=== PATIENT | female | born 1995 | race Caucasian/White ===

== ENCOUNTER → 2018-06-19 16:28 | Outpatient (CLI) | payer OTHER, SELFPAY ==
--- NOTE | 2018-06-19 16:37 | RAD_ITS ---
STUDY: X-RAY CHEST REASON FOR EXAM: Female, 22 years old. Shortness of breath and cough TECHNIQUE: Frontal and lateral views of the chest. COMPARISON: None. FINDINGS: The lungs are clear and expanded. There is no demonstrated pleural abnormality. Normal size heart. Normal mediastinum and tommy. Normal visualized pulmonary arteries. Normal visualized aortic arch and descending thoracic aorta. Normal visualized thoracic spine. Normal visualized ribs, clavicles, and shoulders. There is no demonstrated abnormality of the visualized soft tissue structures of the upper abdomen. RAD/Chest PA and Lateral IMPRESSION: Normal x-ray examination of the chest. Electronically Signed: Praveen Roque MD at 17:46 EDT , Service support ,
== END ==
PROVIDERS: Referring Provider Physician Assistant; Visit Provider Physician Assistant
DX: R06.02 Shortness of breath (principal); R05 Cough
CPT/HCPCS: 71046

== ENCOUNTER 2018-07-16 23:18 | Emergency (ER) | payer OTHER, SELFPAY ==
[2018-07-16 23:19] VITALS: BP 112/71; PULSE 88; RESP 18; TEMP 36.7; O2SAT 97; BMI 30.4
[2018-07-16 23:50] LABS: Bacteria 0 SEEN /hpf (None Seen); Mucous, Urine 0 SEEN /hpf (<or=2+); Red Blood Cells-Urine 0 SEEN /hpf (0-5); Squamous Epithelial Cells - UA 0 SEEN /hpf (5-10); White Blood Cells 0 SEEN /hpf (0-5)
[2018-07-16 23:52] LABS: Color, Urine Straw (Yellow); Glucose, Dipstick Normal (Normal); Ketone-Dipstick Negative (Negative); Leukocyte Esterase-Dipstick Negative /ul (Negative); Nitrite-Dipstick Negative (Negative); Occult Blood-Urine Negative /ul (Negative); Protein-Dipstick Negative (Negative); Specific Gravity, Urine 1.005 (1.002-1.030); Urine Bilirubin Dipstick Negative (Negative); Urine Clarity Clear (Clear); Urine Urobilinogen Normal (Normal)
[2018-07-17] MEDS: Acetaminophen 500 MG Tablet 1000 MG PO (00:07)
[2018-07-17 00:22] LABS: Internal QC Validated? YES +Cl - CLEAR BKGD; Pregnancy, Urine Negative Negative
--- NOTE | 2018-07-17 00:32 | ED.DCSUM_ITS ---
- ER Visit Summary Date of Service: 07/17/18 Chief Complaint: Abdominal pain History of Present Illness: The patient is a [address] Yang. She reports that she has left lower abdominal pain began 6 days ago. Is a continuous dull, pressure. Is 10 to 10 hours and 7-10 currently. Is worsened by movement or walking. Is relieved by remaining still. She denies any associated nausea, vomiting, diarrhea, melena, or hematochezia. Her last bowel was today. She is had no dysuria or frequency. She reports that her last menstrual. Was 4 weeks ago and that she was spotting 2 days ago. No vaginal discharge. Physical Examination: Vitals: Stable. Afebrile. General: Well-nourished and well-developed. Head: Normocephalic atraumatic. Neck: Supple, no lymphadenopathy. No JVD. Nontender. Cardiovascular: Regular rate and rhythm. No murmurs. Respiratory: No respiratory distress. Clear to auscultation bilaterally. Abdominal: Soft, mild tenderness to palpation left lower quadrant, nondistended, normal bowel sounds. No guarding, rebound, or peritoneal signs. Back: Nontender. Extremities: Nontender, no edema. Skin: Normal color, no rash. Neurologic: Alert and oriented ?3. Cranial nerves II through XII are intact. Normal strength and sensation. Psych: Normal affect. Test Results: test is negative. UA is normal. Emergency Department Course and Treatment: Patient was treated with Tylenol. Sh e is resting comfortably. Treatment Plan: Patient will be discharged instructions use Tylenol and/or ibuprofen for pain. Follow-up her primary care physician in 3 to 5 days if not improving. Return to the emergency department for any worsening symptoms. Disposition: To home in improved and stable condition. Impression: 1. Abdominal pain, uncertain cause. This note was generated with [employer] software. It may contain incorrect words, spelling, and punctuation that were not noted in review of the chart prior to signing ED Disposition - Plan for ED Patient: Disposition: Home or Assisted Living Instructions: ED Abdominal Pain Unkn Cause Referrals: Cynthia Yang MD [Primary Care Provider] - 1-2 Days if not improving
[2018-07-17 00:45] VITALS: BP 104/72; PULSE 65; O2SAT 97
== END 2018-07-17 00:48 | disposition home or self-care (01) ==
LOC: ED 07-17 00:04
PROVIDERS: Emergency Provider Emergency Medicine
DX: R10.32 Left lower quadrant pain (principal)
CPT/HCPCS: 81001; 81025; 99283

== ENCOUNTER 2018-08-16 06:07 | Day surgery (SDC) | payer OTHER, SELFPAY ==
[2018-08-02 14:08] VITALS: BMI 30.4
--- NOTE | 2018-08-08 11:10 | HP_ITS ---
ADDENDUM by Phi Alva MD on 08/08/18 at 1112 Addendum entered and electronically signed by Phi Alva MD 08/08/18 11:12: Patient has also had a 3-week history of left lower quadrant abdominal pain and bloating as well as noticing some recent rectal bleeding. She was diagnosed with IBS in the past but not sure if she has had active colitis. She has been told that she had numerous polyps in her colon but in review of the pathology report this was not the case. Intake Chief Complaint: 2-month history of shortness of breath Allergies fluoxetine Allergy (Verified 08/02/18 14:04) Swelling Medications lithium aspartate 5 mg capsule 10 mg PO BID cap 06/19/18 [History Confirmed 07/17/18] ascorbic acid (vitamin C) 250 mg tablet 250 mg PO DAILY 08/02/18 [History Confirmed 08/02/18] cholecalciferol (vitamin D3) 5,000 unit capsule 5,000 unit PO DAILY 08/02/18 [History Confirmed 08/02/18] Assessment & Plan Problems 1. Diarrhea, unspecified type R19.7 2. Epigastric abdominal pain R10.13 Plan - Phi Alva MD I have discussed the above with the patient. I have offered the patient colonoscopy as well as an EGD for evaluation. I have explained the risks/benefits of the procedure and described the procedure. I have discussed the risks with the patient, including but not limited to: infection, bleeding, perforation of the GI tract requiring emergency surgery, inability to complete the procedure, injury to any internal organs, complications of anesthesia, etc. - the patient understands and agrees to proceed. I have answered all the patient's questions to the patient's satisfaction and the patient has no further questions. The patient has been given instructions for the colon cleansing preparation. She will need to have random colon biopsies performed as well as small bowel biopsy. 08/08/18 1113 <Electronically signed by Phi guaman MD> Date _ Phi Alva MD cc: Cynthia Yang MD ~* Signed Intake Vital Signs 08/02/18 Body Mass Index (BMI) 30.4 08/02/18 Height 5 ft 4 in 08/02/18 Weight: 173 lb 08/02/18 Body Mass Index (BMI) 29.7 08/02/18 Blood Pressure 117/71 08/02/18 Blood Pressure Location Rt brachial 08/02/18 Blood Pressure Position Sitting 08/02/18 Respiratory Rate 18 08/02/18 Pulse Rate 68 08/02/18 Pulse Source Monitor 08/02/18 Temperature 97.8 F 08/02/18 Temperature Source Oral 08/02/18 Pulse Ox 100 08/02/18 Oxygen Delivery Method room air Intake Visit Reasons: Rectal Bleeding US [facility] 07/28 Chief Complaint: 2-month history of shortness of breath [employer] Required: No Is patient in pain?: No Allergies fluoxetine Allergy (Verified 08/02/18 14:04) Swelling Medications lithium aspartate 5 mg capsule 10 mg PO BID cap 06/19/18 [History Confirmed 07/17/18] ascorbic acid (vitamin C) 250 mg tablet 250 mg PO DAILY 08/02/18 [History Confirmed 08/02/18] cholecalciferol (vitamin D3) 5,000 unit capsule 5,000 unit PO DAILY 08/02/18 [History Confirmed 08/02/18] [facility] Medical History Abdominal pain (Acute) Anxiety (Acute) Depression (Acute) Fibrocystic breast disease (Acute) Radon exposure (Acute) Shortness of breath (Acute) Thyroid disease (Acute) Surgical History History of cholecystectomy (Resolved) Family History Mother Diabetes Thyroid disorder Anemia Other Heart disease Kidney disease Social History (Updated 08/08/18 @ 11:10 by Phi Alva MD) Smoking Status: Never smoker alcohol intake: never substance use type: does not use HPI HPI HPI: JAH MALAVE is a 22 F who presents to the office today for HPI HPI Surgical H&P: Yes HPI: JAH MALAVE is a 22 F who presents to the office today for evaluation of epigastric abdominal pain and chronic diarrhea. Patient has had a work-up back in 2014 where she had an upper endoscopy which was reportedly negative and a colonoscopy which showed significant amounts of lymphoid aggregates but no other polyps were identified. Biopsies did not show any signs of lymphocytic or collagenous colitis. Over the last several months things have been getting significantly worse for her with regards to her abdominal pain. And as well as her diarrhea. ROS General General: Yes weight change and fatigue; no appetite, colon cancer, breast cancer or weakness HEENT HEENT: No difficulty swallowing, eye injury, eye surgery, swollen glands or hoarseness Endo Endocrine: No thyroid disease, diabetes mellitus, thyroid cancer, Hair loss, heat intolerance or cold intolerance Skin Skin: No rash or changing moles Breast Breast: No left breast lump, right breast lump, nipple discharge, breast pain, abnormal mammogram, abnormal US or breast enlargement Musc Musculoskeletal: No back problems, arthritis, rheumatoid arthritis, gout or joint pain Cardio Cardiovascular: No murmur, pacemaker, heart disease, atrial fibrillation, high blood pressure, heart attack, heart stent, palpitations, shortness of breat with exertion or chest pain Psych Psychiatric: Yes depression and anxiety; no hearing voices Resp Respiratory: No shortness of breath, No sleep apnea, No cough, No COPD, No asthma, No emphysema, No wheezing Gastro Gastrointestinal: Yes abdominal pain, Yes nausea or vomiting, Yes diarrhea, Yes constipation, Yes blood in stool, No acid reflux, No hemorrhoids, No ulcers, No gallbladder problem, No black,tarry stools Eric Hematologic: No blood thinners, No blood disorders, No bleeding, No anemia, No blood clots Neuro Neurologic: No system reviewed and no additional complaints, except as docu, No as per HPI, No abnormal walking, No abnormal hearing, No abnormal movements, No abnormal speech, No behavioral changes, No burning sensations, No confusion, No seizure-like activity, No unsteadiness, No dizziness, No localized weakness, No frequent falls, No headache(s), No lack of coordination, No loss of vision, No memory loss, Yes numbness, No other visual disturbances, No radiating pain, No restless legs, No sensory deficit, No fainting, Yes tingling, No tremor(s), No weakness, No other Exam Const General: no acute distress, well developed, well hydrated Orientation: oriented to person, oriented to place, oriented to time [facility] Head: normocephalic, atraumatic Ears: external ears normal Mouth: moist mucous membranes Eyes Sclera: sclerae normal Pupils: normal by confrontation Neck Neck: no lymphadenopathy noted Neck mass: No Thyroid: thyroid normal, symmetrical Chest Chest palpation & inspection: normal inspection of the chest Breast Palpation: No nipple discharge Resp Effort & Inspection: normal respiratory effort Auscultation: clear to auscultation bilaterally Percussion: percussion normal Cardio Rate: regular rate Rhythm: regular rhythm Heart Sounds: no murmurs GI Palpation: soft, no hepatosplenomegaly, no masses, nontender Rectal Exam: other Other: Rectal exam deferred. Extrem General: normal to inspection, no clubbing, cyanosis or edema Assessment & Plan Problems 1. Diarrhea, unspecified type R19.7 2. Epigastric abdominal pain R10.13 Plan I have discussed the above with the patient. I have offered the patient colonoscopy as well as an EGD for evaluation. I have explained the risks/benefits of the procedure and described the procedure. I have discussed the risks with the patient, including but not limited to: infection, bleeding, perforation of the GI tract requiring emergency surgery, inability to complete the procedure, injury to any internal organs, complications of anesthesia, etc. - the patient understands and agrees to proceed. I have answered all the patient's questions to the patient's satisfaction and the patient has no further questions. The patient has been given instructions for the colon cleansing preparation. She will need to have random colon biopsies performed as well as small bowel biopsy. Coding Level of Care Code Off vis,new,level 3 Diagnoses Diarrhea, unspecified type R19.7 ??Diarrhea type: unspecified type Epigastric abdominal pain R10.13 08/08/18 1111 <Electronically signed by Phi guaman MD> Date _ Phi Alva MD I have re-examined the patient. There are no clinical changes since date of exam.
[2018-08-16] VITALS (10 sets, daily range): BP systolic 92–110; BP diastolic 57–92; PULSE 65–93; RESP 16; TEMP 36.6–37.2; O2SAT 98–100; BMI 29.0
--- NOTE | 2018-08-16 | GASB_PTH ---
PATIENT: JAH MALAVE LOC: EN U#:[id number] AGE/SX: 22/F ROOM: RE08/16/[address]: Dr. Phi Alva MD : 1995 BED: DIS: 08/16/2018 SPEC #: [id number] RECD: 08/16/18 09:57 STATUS: NICANOR REMarina #: [id number] MARYANA: 08/16/18 00:[address]: Phi Alva DEPT: SURGICAL PATHOLOGY RECD BY: Neno Kohler ENTERED: 08/16/18 14:04 SP TYPE: Gastric Bx OTHR DR: Dr. Cynthia Yang MD Tissues: A - Gastric mucous membrane B - Gastric mucous membrane C - Ileum, NOS D - COLON BIOPSY Procedures: Trichrome (control) Special Stain Group II Surgery Specimen Level IV HEADER OPERATION[place] [place] DIAGNOSIS: Diarrhea, epigastric abdomen pain TISSUE SUBMITTED: A - Small bowel biopsy, B - Antrum biopsy, H. pylori and path, C - Terminal ileum biopsy, D - Random colon biopsy MICROSCOPIC DIAGNOSIS A. Small bowel biopsy: Fragments of duodenal mucosa, no pathologic diagnosis. B. Antrum, biopsy: Minimal chronic inflammation. See comment. C. Terminal ileum, biopsy: A fragment of small intestinal mucosa, no pathologic diagnosis. D. Colon, random biopsy: Fragments of colonic mucosa, no pathologic diagnosis. See comment. SJ:donal 08/18/18 COMMENT B. The results of immunohistochemistry for Helicobacter pylori will be reported separately ([id number]). C. Trichrome stain with matched control is used in the evaluation of the specimen and does not show any significant thinning of subepithelial collagen band. MICROSCOPIC DESCRIPTION Slides are reviewed. GROSS DESCRIPTION A - Received in fixative is one container labeled with the patient's name and designated small bowel biopsy. The specimen consists of multiple irregular fragments of light huber soft tissue that in aggregate measure 0.5 x 0.3 x 0.1 cm. The specimen is totally submitted in one cassette. B - Received in fixative is one container labeled with the patient's name and designated antrum, H. pylori and path. The specimen consists of one irregular fragment of light huber soft tissue that measures 0.6 x 0.3 x 0.1 cm. The specimen is totally submitted in one cassette. C - Received in fixative is one container labeled with the patient's name and designated terminal ileum biopsy. The specimen consists of one irregular fragment of light huber soft tissue that measures 0.3 x 0.3 x 0.1 cm. The specimen is totally submitted in one cassette. D - Received in fixative is one container labeled with the patient's name and designated random colon biopsy. The specimen consists of multiple irregular fragments of light huber soft tissue that in aggregate measure 2 x 0.5 x 0.1 cm. The specimen is totally submitted in one cassette. / SJ:rg 08/16/18 TC:3 CPT: 48614 x4, 16463
--- NOTE | 2018-08-16 | IMM_PTH ---
PATIENT: JAH MALAVE LOC: EN U#:[id number] AGE/SX: 22/F ROOM: RE08/16/[address]: Dr. Phi Alva MD : 1995 BED: DIS: 08/16/2018 SPEC #: [id number] RECD: 08/18/18 07:18 STATUS: NICANOR REQ #: [id number] MARYANA: 08/16/18 00:[address]: Phi Alva DEPT: IMMUNOHISTOCHEMISTRY RECD BY: Bronwyn Salazar ENTERED: 08/18/18 07:19 SP TYPE: IMMUNO OTHR DR: Dr. Cynthia Yang MD Tissues: B - Stomach, NOS Procedures: H Pylori (initial) PHYSICIAN & [place] [id number] SPECIMEN INFORMATION: Tissue Source: B - Antrum biopsy Clinical Info: Diarrhea, epigastric abdomen pain Specimen Number: [id number] CPT code: 57444 METHODOLOGY: Deparaffinized sections of prefer/formalin-fixed tissue or PAP/DQ stained slides are incubated with monoclonal/polyclonal antibodies/oligonucleotide probes. Localization is made via biotin free immunoperoxidase method. Appropriate controls are performed and reacted as expected. Results on target cell population are indicated in the following table: RESULTS: ANTIBODY / CLONE RESULT Block B H Pylori (polyclonal) negative These tests were developed and their performance characteristics determined by [facility]. They may not have been cleared or approved by the U.S. Food and Drug Administration. The FDA has determined that such clearance or approval is not necessary. INTERPRETATION: B. Antrum biopsy: Negative for Helicobacter pylori organisms. SJ:donal 08/18/18
[2018-08-16 06:41] LABS: Internal QC Validated? YES +Cl - CLEAR BKGD; Pregnancy, Urine Negative Negative
--- NOTE | 2018-08-16 10:46 | OP.ENDO_ITS ---
08/16/2018 Cynthia Yang Md Re : Colonoscopy procedure for Justin Pascual Dear Trey This procedure was performed on Thursday, August 16, 2018. My impressions and recommendations are as follows: Impressions : - The entire examined colon is normal. Biopsied. - The examined portion of the ileum was normal. Biopsied. - The examination was otherwise normal on direct and retroflexion views. Recommendations : - Discharge patient to home. - Resume previous diet. - Continue present medications. - Await pathology results. - Repeat colonoscopy in 10 years for screening purposes. - Return to my office in 1 week. My findings are described in the full procedure note, which is enclosed. If I can be of further assistance, please feel free to contact me at Doctor phone number(s): , Fax: [phone], Work: . Sincerely, MD Phi Parham MD 08/16/2018 7:34:13 AM This report has been signed electronically.
--- NOTE | 2018-08-16 10:46 | OP.ENDO_ITS ---
08/16/2018 Cynthia Yang Md Re : Upper GI endoscopy procedure for Justin Pascual Dear Trey This procedure was performed on Thursday, August 16, 2018. My impressions and recommendations are as follows: Impressions : - Normal esophagus. - Erythematous mucosa in the prepyloric region of the stomach. Biopsied. - Normal examined duodenum. Biopsied. Recommendations : - Await pathology results. - Repeat upper endoscopy at appointment to be scheduled for surveillance based on pathology results. - Return to my office in 1 week. - Continue present medications. My findings are described in the full procedure note, which is enclosed. If I can be of further assistance, please feel free to contact me at Doctor phone number(s): , Fax: [phone], Work: . Sincerely, MD Phi Parham MD 08/16/2018 7:29:41 AM This report has been signed electronically.
== END 2018-08-16 08:36 | disposition home or self-care (01) ==
LOC: EN 06:07 → AC 06:09
PROVIDERS: Anesthesiology; Referring Provider Surgery; Visit Provider Surgery
PROC: 0DJD8ZZ Inspection of Lower Intestinal Tract, Via Natural or Artificial Opening Endoscopic (ICD-10-PCS; CPT 45378; principal; 2018-08-16 06:55)
DX: K31.89 Other diseases of stomach and duodenum (principal); R10.13 Epigastric pain; R19.7 Diarrhea, unspecified; F41.9 Anxiety disorder, unspecified
CPT/HCPCS: 43239; 45380; 81025; 88305; 88313; 88342; J7120

== ENCOUNTER → 2018-11-22 17:03 | Outpatient (CLI) | payer OTHER, SELFPAY ==
[2018-11-22 13:52] VITALS: BMI 29.0
[2018-11-22 19:50] LABS: Chlamydia Trachomatis by PCR Negative (Negative); Neisserai gonorrhoeae by PCR Negative (Negative); Probe Check PASS; Sample Adequacy Control PASS; Specimen Processing Control PASS
[2018-11-27 10:34] LABS: HPV Reflexed? NOT INDICATED
== END ==
PROVIDERS: Referring Provider Nurse Practitioner Women's Health; Visit Provider Nurse Practitioner Women's Health
DX: Z12.4 Encounter for screening for malignant neoplasm of cervix (principal); Z11.3 Encounter for screening for infections with a predominantly sexual mode of transmission; R10.2 Pelvic and perineal pain
CPT/HCPCS: 87070; 87205; 87491; 87591; 88175; G0145

== ENCOUNTER 2019-05-02 06:46 | Emergency (ER) | payer OTHER, SELFPAY ==
[2018-11-22 13:52] VITALS: BMI 29.0
[2019-05-02 06:46] VITALS: BP 116/69; PULSE 106; RESP 14; TEMP 36.8; O2SAT 99; BMI 30.1
--- NOTE | 2019-05-02 07:01 | NURSING ---
NO OLD EKGS
--- NOTE | 2019-05-02 07:04 | EKG12_ITS ---
Test Reason : SYNCOPE Blood Pressure : / mmHG Vent. Rate : 096 BPM Atrial Rate : 096 BPM P-R Int : 112 ms QRS Dur : 092 ms QT Int : 352 ms P-R-T Axes : 052 068 046 degrees QTc Int : 444 ms Normal sinus rhythm Normal ECG Confirmed by TEMO MERCER, BELKIS ([id number]), features editor TREVOR REDMAN ([id number]) on 05/07/2019 11:21:27 AM Referred By: CRISTIANA Confirmed By:MARILYN PLASCENCIA MD
--- NOTE | 2019-05-02 07:04 | ED.DCSUM_ITS ---
History of Present Illness Chief Complaint: Syncope Informant: Patient Narrative: Patient presents for the evaluation of syncope. Patient states that yesterday she had some diarrhea but is otherwise went to bed okay. She woke this morning and use the bathroom. She was washing her hands when she suddenly got hot and nauseated. States she remembers falling down to the ground. She states she continues to feel nauseated and hot. She has small amount of sore throat yesterday. No fevers runny nose or cough. She notes an epigastric discomfort. Past Medical History - Allergies and Home Meds Allergies/Adverse Reactions: Allergies fluoxetine Allergy (Verified 05/02/19 06:50) Swelling Primary Care Physician: Garth Yang MD [Primary Care Provider] - Smoking Status: Never smoker Review of Systems General: Denies: Chills, Fever, Sweats Eyes: Denies: Visual changes - bilaterally, Diplopia ENT: Reports: Sore throat. Denies: Rhinorrhea Cardiovascular: Denies: Chest pain, Palpitations Respiratory: Denies: Dyspnea, Cough, Dyspnea on exertion Gastrointestinal: Reports: Abdominal pain, Nausea, Diarrhea. Denies: Vomiting, Melena, Hematochezia Genitourinary: Denies: Dysuria, Hematuria, Frequency Musculoskeletal: Denies: Back pain, Extremity Pain Skin: Denies: Rash, Wounds Neurological: Denies: Headache, Weakness, Numbness Physical Exam Vital Signs/Narrative: Vital Signs Temp Pulse Resp BP Pulse Ox 05/02/19 06:46 98.2 F 106 H 14 116/69 99 Inital Vital Signs reviewed: Yes General: Well nourished, Well developed, No Acute Distress Head: Normocephalic, Atraumatic Eyes: Perrl, EOMI ENT: Moist mucous membranes, No rhinorrhea Neck: Supple, Nontender Cardiovascular: Regular rate, Regular rhythm, No murmurs Respiratory: No distress, CTA bilaterally, Chest nontender Abdomen: Soft, Nontender, Nondistended, Normal bowel sounds Back: Nontender, Normal Inspection Extremities: Nontender, No edema Skin: Normal color, No rash Neurological: Alert, Oriented x3, Cranial nerves II-XII grossly intact, Normal Strength, Normal Sensation Psychological: Normal affect, Normal Mood Diagnostic/Tx/Re-eval - EKG Initial EKG Interpretation: Sinus Rhythm - EKG is a normal sinus rhythm at a rate of 96 without ectopy or concerning features of ACS. - Medical Decision Making Basic labs were normal. EKG is a normal sinus rhythm. Chest x-ray shows a normal mediastinal silhouette. She has had no events on the monitor. She received Zofran. I believe that the cause of syncope is most likely vasovagal. She is most likely developing a viral stomach illness. I will write for some Zofran and instructed on Imodium. She asked me if she could have a prescription for anxiety medication. I informed her that this is something that is best handled through primary care as anxiety is a chronic medical condition that is best served with multiple evaluations and adjustments of meds. ED Disposition - Plan for ED Patient: Disposition: Home or Assisted Living Diagnosis: Vasovagal syncope, Gastroenteritis Instructions: SYNCOPE, Vasovagal, GASTROENTERITIS, Viral (6y-Adult) Prescriptions: Ondansetron [Zofran Odt] 4 mg PO Q6H PRN PRN #20 tab PRN Reason: Nausea Transmission Status: Pending to [id number] Referrals: Garth Yang MD [Primary Care Provider] - As soon as possible
--- NOTE | 2019-05-02 07:05 | RAD_ITS ---
STUDY: X-RAY CHEST REASON FOR EXAM: Female, 23 years old. SYNCOPE TECHNIQUE: Single AP portable view of the chest. COMPARISON: June 19, 2018 FINDINGS: The lungs are clear and expanded. There is no demonstrated pleural abnormality. Normal size heart. Normal mediastinum and tommy. Normal visualized pulmonary arteries. Normal visualized aortic arch and descending thoracic aorta. Normal visualized thoracic spine. Normal visualized ribs, clavicles, and shoulders. There is no demonstrated abnormality of the visualized soft tissue structures of the upper abdomen. RAD/Chest 1 View (Portable) IMPRESSION: Normal x-ray examination of the chest. Electronically Signed: Pedro Brand DO at 7:35 EDT Tel , Service support ,
[2019-05-02 07:20] LABS: Absolute Lymphocyte Count 1.97 X10^3/uL (0.83-4.51); Absolute Neutrophil Count 5.5 X10^3/uL (2.0-7.7); Basophil# 0.02 X10^3/uL; Basophil% 0.2 % (0-1); Eosinophil# 0.07 X10^3/uL; Eosinophils% 0.8 % (0-5); Hematocrit 39.2 % (37-47); Hemoglobin 12.9 g/dL (12.0-15.0); Lymphocyte # 1.97 X10^3/ul (4.0); Lymphocyte % 23.7 % (19-41); Mean Corp Hgb Conc 32.9 g/dL (32-36); Mean Corpuscular Volume 91.2 fL (81-99); Mean Platelet Vol. 9.5 fl (6.2-12.0); Monocyte# 0.67 X10^3/uL; Monocyte% 8.1 % (0-10); NRBC Flagged by Analyzer 0 % (0-5); Neutrophil # 5.54 X10^3/uL (2.7-7.7); Neutrophil % 66.8 % (47-70); Platelet Count 248 K/mm3 (150-450); RBC Distribution Width CV 13.4 % (11.6-14.6); White Blood Count 8.3 K/mm3 (4.4-11.0)
[2019-05-02] MEDS: Ondansetron 4 MG/2 ML Vial IV (07:23)
[2019-05-02 07:49] LABS: ALB/GLOB Ratio 1.2 RATIO (0.9-2.4); AST(SGOT) 8 U/L (15-37); Alanine Aminotransfer ALT/SGPT 13 U/L (13-56); Albumin, Serum 3.4 g/dL (3.2-5.0); Alkaline Phosphatase 74 U/L (45-117); Anion Gap 6 (5-15); BUN 7 mg/dL (7-18); BUN/Creat Ratio 8.7 RATIO (10-20); Calcium,Total 8.2 mg/dL (8.5-10.1); Chloride 109 mmol/L (98-107); Creatinine, Serum 0.81 mg/dL (0.55-1.02); EST Glomerular Filtration Rate 93 mL/min (>60); Est Glom Filt Rate - Afr Amer 113 mL/min (>60); Estimated Creatinine Clearance 93.28 ml/min; Globulin 2.9 g/dL (2.2-4.2); Glucose 113 mg/dL (74-106); Lipase 92 U/L (73-393); Potassium 3.8 mmol/L (3.5-5.1); Protein, Total 6.3 g/dL (6.4-8.2); Sodium Level 140 mmol/L (136-145)
[2019-05-02 08:49] LABS: Mucous, Urine 0 SEEN /hpf (<or=2+); Red Blood Cells-Urine 0 SEEN /hpf (0-5); Squamous Epithelial Cells - UA 0 SEEN /hpf (5-10)
[2019-05-02 08:53] LABS: Color, Urine Yellow (Yellow); Glucose, Dipstick Normal (Normal); Ketone-Dipstick Negative (Negative); Leukocyte Esterase-Dipstick Negative /ul (Negative); Nitrite-Dipstick Negative (Negative); Occult Blood-Urine Negative /ul (Negative); Protein-Dipstick Negative (Negative); Specific Gravity, Urine 1.005 (1.002-1.030); Urine Bilirubin Dipstick Negative (Negative); Urine Clarity Clear (Clear); Urine Urobilinogen Normal (Normal); Urine pH 6.5 (5.0 - 8.0)
[2019-05-02 09:00] LABS: Internal QC Validated? YES +Cl - CLEAR BKGD; Pregnancy, Urine Negative Negative
[2019-05-02 09:07] LABS: Bacteria 2+ /hpf (None Seen); White Blood Cells 0-5 SEEN /hpf (0-5)
[2019-05-02 09:22] VITALS: BP 121/69; PULSE 92; RESP 18; O2SAT 100
== END 2019-05-02 09:23 | disposition home or self-care (01) ==
PROVIDERS: Emergency Provider Emergency Medicine; PCP Family Medicine
DX: R55 Syncope and collapse (principal); K52.9 Noninfective gastroenteritis and colitis, unspecified
CPT/HCPCS: 71045; 80053; 81001; 81025; 83690; 85025; 93005; 96374; 99284; A4216; J2405

== ENCOUNTER → 2019-12-20 08:06 | Outpatient (CLI) | payer OTHER, SELFPAY ==
--- NOTE | 2019-12-20 08:11 | RAD_ITS ---
STUDY: X-RAY - RIGHT FOOT CLINICAL: Female, 24 years old. CHRONIC FOOT PAIN X YEARS. NO INJURY TECHNIQUE: 3 view(s) of the foot. COMPARISON: None. FINDINGS: Normal talus, calcaneus, and tarsal bones. Normal visualized subtalar, talonavicular, calcaneocuboid, tarsal and tarsometatarsal articulations. Normal metatarsi. Normal metatarsophalangeal joint of the great toe. Normal tibial and fibular sesamoid bones. Normal interphalangeal joint of the great toe. Normal phalanges of the great toe. Normal second through fifth metatarsophalangeal joints. Normal interphalangeal joints and phalanges of the lesser toes. The soft tissue structures are unremarkable. RAD/Foot min 3 Views IMPRESSION: Normal x-ray examination of the foot. Electronically Signed: Malcolm Tejada, at 15:57 EST , Service support ,
--- NOTE | 2019-12-20 08:11 | RAD_ITS ---
STUDY: X-RAY - LEFT FOOT CLINICAL: Female, 24 years old. CHRONIC FOOT PAIN X YEARS. NO INJURY TECHNIQUE: 3 view(s) of the foot. COMPARISON: None. FINDINGS: Normal talus, calcaneus, and tarsal bones. Normal visualized subtalar, talonavicular, calcaneocuboid, tarsal and tarsometatarsal articulations. Normal metatarsi. Normal metatarsophalangeal joint of the great toe. Normal tibial and fibular sesamoid bones. Normal interphalangeal joint of the great toe. Normal phalanges of the great toe. Normal second through fifth metatarsophalangeal joints. Normal interphalangeal joints and phalanges of the lesser toes. The soft tissue structures are unremarkable. RAD/Foot min 3 Views IMPRESSION: Normal x-ray examination of the foot. Electronically Signed: Malcolm Tejada, at 15:57 EST , Service support ,
== END ==
PROVIDERS: PCP Family Medicine; Visit Provider Nurse Practitioner Family
DX: M79.671 Pain in right foot (principal); M79.672 Pain in left foot; R45.0 Nervousness
CPT/HCPCS: 73630

== ENCOUNTER → 2020-10-22 17:38 | Outpatient (CLI) | payer OTHER, SELFPAY ==
--- NOTE | 2020-10-22 17:56 | CT_ITS ---
STUDY: CT ABDOMEN AND PELVIS WITH CONTRAST REASON FOR EXAM: Female, 24 years old. ABDOMINAL PAIN RADIATION DOSAGE (If Supplied By Facility): CTDIvol = ( 14.92 ) mGy, DLP = ( 1052.46 ) mGycm TECHNIQUE: Transaxial images were obtained from the dome of the diaphragm to the symphysis pubis without oral contrast. Oral and amp; IV Readi-CAT and amp; 100mL Isovue-370 was administered. Sagittal and coronal images were reconstructed. Individualized dose optimization techniques were used for this CT. COMPARISON: None. FINDINGS: The visualized lung bases are unremarkable. The visualized portions of the heart are within normal limits. Normal liver. Normal gallbladder and extrahepatic biliary system. Normal spleen. Normal pancreas. Normal bilateral adrenal glands. Normal right kidney. Normal left kidney. Normal visualized stomach. Normal small intestine. Normal colon. The appendix is visualized and appears normal. Normal abdominal aorta. Normal inferior vena cava. Normal retroperitoneum. Numerous prominent mesenteric lymph nodes. Normal urinary bladder. Normal visualized uterus. Right corpus luteum cyst. Normal abdominal wall. Normal osseous structures. CT/Abdomen/Pelvis WITH Contrast IMPRESSION: Numerous prominent mesenteric lymph nodes, as can be seen in mesenteric adenitis. Right corpus luteum cyst. Electronically Signed: Curt Alicea MD at 4:32 EDT Tel , Service support ,
== END ==
PROVIDERS: PCP Family Medicine; Visit Provider Family Medicine
DX: R10.9 Unspecified abdominal pain (principal)
CPT/HCPCS: 74177; Q9967

== ENCOUNTER 2021-04-03 09:27 | Outpatient (CLI) | payer OTHER, SELFPAY ==
[2021-04-03 10:47] LABS: Hemoglobin A1c 4.9 % (3.8-5.6)
[2021-04-03 11:13] LABS: Rheumatoid Factor < 10.0 IU/mL (<15)
[2021-04-06 14:08] LABS: RNP Ab 0.2 AI (0.0-0.9); Smith Ab <0.2 AI (0.0-0.9)
[2021-04-06 14:35] LABS: ANTINUCLEAR ANTIBODIES DIRECT Negative (Negative)
[2021-04-14 11:09] LABS: Vitamin B1, Thiamine 215.3 nmol/L (66.5-200.0)
[2021-04-15 13:26] LABS: Endomysial Antibody IgA Negative (Negative); t-Transglutaminase IgA <2 U/mL (0-3)
== END 2021-04-03 23:59 | disposition home or self-care (01) ==
LOC: LAB 09:28
PROVIDERS: PCP Family Medicine; Referring Provider Psychiatry & Neurology Neurology; Visit Provider Psychiatry & Neurology Neurology
DX: R20.2 Paresthesia of skin (principal)
CPT/HCPCS: 83036; 83516; 84207; 84425; 86038; 86235; 86255; 86431